=== PATIENT | male | born 1965 | race Caucasian/White ===

== ENCOUNTER 2021-09-02 14:57 | Emergency (ER) | payer OTHER ==
[2021-09-02] MEDS ORDERED: ILOTYCIN1 GM OS (16:15)
== END 2021-09-02 16:32 | disposition home or self-care (01) ==
LOC: FER 14:57
DX: T15.02XA Foreign body in cornea, left eye, initial encounter (principal); Z23 Encounter for immunization
CPT/HCPCS: 90471; 90715